=== PATIENT | female | born 1960 | race Caucasian/White ===

== ENCOUNTER 2017-03-22 11:34 | Observation (INO) ==
--- NOTE | 2017-03-22 12:16 | Emergency Department Note ---
Disposition Clinical Impression: ECG abnormal Chest pain Qualifiers: Chest pain type: unspecified Qualified Code(s): R07.9 - Chest pain, unspecified Disposition: Admitted As Inpatient Condition: Good Neuro HPI - General Chief Complaint: ED Neuro Symptoms/Deficit Stated Complaint: facial/L arm numbness Time Seen by Provider: 03/22/17 11:53 Source: patient Limitations: no limitations Nursing Notes Reviewed: Yes Vital Signs Reviewed: Yes - History of Present Illness HPI Narrative: She presents with numbness of the left face and left tongue and left arm which started yesterday and then extended left ankle today. No slurred speech, drooping of the face or confusion. This is confirmed by her who is also here with her. No weakness of the extremities. She also has left-sided chest pain which is heaviness feeling and started about 9:00 this morning is constant and nonexertional. No pleuritic aspect. No radiation and specifically no radiation to the back, neck, arm or jaw. No fevers but does have some blurred vision left eye. No rhinorrhea, cough, sneezing, urine or stool, pain or swelling of extremities, skin rash or bruising of the skin. Social history: No alcohol or drugs. Family history: Positive for both heart attack and stroke in parents - Related Data Home Medications: Home Medications Medication Instructions Recorded Confirmed Amlodipine [Norvasc] 2.5 - 5 mg PO DAILY 03/22/17 03/22/17 Aspirin Enteric Coated [Aspirin EC] 81 mg PO DAILY 03/22/17 03/22/17 Ergocalciferol (VITAMIN D2) 400 unit PO DAILY 03/22/17 03/22/17 [Vitamin D] [place]-3/Dha/Epa/Fish Oil [Fish Oil 1,000 mg PO DAILY 03/22/17 03/22/17 1,000 mg Softgel] Potassium 99 mg PO DAILY 03/22/17 03/22/17 Allergies/Adverse Reactions: Allergies Allergy/AdvReac Type Severity Reaction Status Date / Time No Known Allergies Allergy Verified 03/22/17 11:53 Review of Systems: No fevers but does have some blurred vision. No rhinorrhea, cough, sneezing, urine or stool, pain or swelling of extremities, skin rash or bruising of the skin. Past Medical History - Past Medical History Medical history: Reports: hypertension - Social History Smoking Status: Never smoker Smokeless Tobacco Status: No Alcohol use: Reports: occasionally Drug use: Reports: none Physical Exam CONSTITUTIONAL: Well-appearing; well-nourished; A&O X3, in no apparent distress HEAD: Normocephalic; atraumatic. EYES: PERRL, EOMI, no scleral icterus NOSE: The nose is normal in appearance without rhinorrhea NECK: Supple without rigidity, no MIGUEL A RESP: Normal chest excursion with respiration; breath sounds clear and equal bilaterally; no wheezes, rhonchi, or rales CARD: Regular rhythm, without murmurs, rub or gallop ABD: Non-distended; non-tender, soft, without rigidity, rebound or guarding Chest: No pain with palpation anterior chest wall SKIN: Normal for age and race; warm and dry; no apparent lesions, no rash NEUROLOGICAL: Patient is alert and oriented times three. Cranial nerves III- XII are intact. Sensory and motor functions are intact. Strength is 5/5 for flexion and extension in all 4 extremities. Patellar DTRS are equal and intact. Finger to nose testing is equal and normal bilaterally. EXTREMITIES: Pulses are 2 plus and equal times 4 extremities, no peripheral edema or calf muscle pain. - General Limitations: no limitations General appearance: alert Course Vital Signs Temperature 98.6 F 03/22/17 11:48 Pulse Rate 94 03/22/17 11:48 Respiratory Rate 18 03/22/17 11:48 Blood Pressure 169/81 03/22/17 11:48 O2 Sat by Pulse Oximetry 99 03/22/17 11:48 Temperature 97.9 F 03/22/17 19:03 Pulse Rate 69 03/22/17 19:03 Respiratory Rate 15 03/22/17 19:03 Blood Pressure 132/75 03/22/17 19:03 O2 Sat by Pulse Oximetry 95 03/22/17 19:03 Oxygen Delivery Oxygen Delivery Room Air Neuro Symptoms/Deficit - MDM Narrative Medical decision making narrative: The patient's symptoms are concerning is they are unilateral and a head CT will be done as well as additional labs to look for signs of stroke or intracranial mass or hemorrhage. As far as the chest pain this is nonexertional and nonpleuritic however I did get a EKG which does show normal sinus rhythm with a rate of 80 without acute ischemic change but there are some nonspecific ST changes. The patient does have some concern risk factors based on her age and history of hypertension and does need further evaluation for the chest pain as this is concerning.[id number] changes on her EKG will be admitted for further evaluation of that as well as the unilateral numbness. I did speak with the hospitalist who accepts the patient for admission - Medical Records Medical records reviewed: Yes I reviewed the patient's medical records. - Lab Data Lab results reviewed: Yes I reviewed the patient's lab results. Result diagrams: 03/22/17 12:51 03/22/17 12:51 Lab Results 03/22/17 03/22/17 03/22/17 Range/Units 12:51 12:51 12:51 WBC 5.8 (4.3-11.1) K/mcL RBC 4.54 (3.82-4.97) M/mcL Hgb 12.9 (11.5-15.4) g/dL Hct 39.0 (35.3-44.9) % MCV 85.9 (83.0-100.0) fL MCH 28.4 (28.0-33.3) pg MCHC 33.1 (31.6-35.5) g/dL RDW 13.3 (11.5-14.5) % Plt Count 364 (140-400) K/mcL MPV 9.3 L (9.4-12.4) fL Immature Gran % 0.3 (0-4) % Seg Neutrophils % 58.6 % Lymphocytes % 33.2 % Monocytes % 5.3 % Eosinophils % 1.7 % Basophils % 0.9 % Neutrophils # 3.4 (1.6-8.9) K/mcL Lymphocytes # 1.9 (0.6-4.6) K/mcL Monocytes # 0.3 (0.0-1.3) K/mcL Eosinophils # 0.1 (0.0-0.6) K/mcL Basophils # 0.1 (0.0-0.2) K/mcL Sodium 143 (136-145) mEq/L Potassium 2.9 L (3.5-4.5) mEq/L Chloride 106 (98-109) mEq/L Carbon Dioxide 29 (19-29) mEq/L BUN 13 (7-20) mg/dL Creatinine 0.80 (0.57-1.11) mg/dL Est GFR ( Amer) > 60 (> 60) Est GFR (Non-Af Amer) > 60 (> 60) BUN/Creatinine Ratio 16 (6-26) Glucose 96 (70-99) mg/dL Calculated Osmolality 296 (280-300) Calcium 9.5 (8.6-10.8) mg/dL Magnesium 2.5 (1.6-2.6) mg/dL Troponin I 0.00 (0-0.03) ng/mL - Radiology Data Radiology results reviewed: Yes I reviewed the patient's radiology results. Head CT 03/22/17 12:05 IMPRESSION: No acute intracranial abnormality. D/ / Ismael Rogers MD / Ismael Rogers MD Interpreting Provider: Ismael Rogers MD Chest X-Ray 03/22/17 12:06 IMPRESSION: Acute findings in the chest. D/ / Bronson Gonzalez MD / Bronson Gonzalez MD Interpreting Provider: Bronson Gonzalez MD Checklist - LKW: 3-4.5 hrs Add. Contraindications Patient/family understanding: The patient/family members have been counseled and understood the risk, benefit , and alternatives of treatment.
[2017-03-22 13:07] LABS: Basophils # 0.1 K/mcL (0.0-0.2); Basophils % 0.9 %; Eosinophils # 0.1 K/mcL (0.0-0.6); Eosinophils % 1.7 %; Hemoglobin 12.9 g/dL (11.5-15.4); Immature Granulocytes % 0.3 % (0-4); Lymphocytes # 1.9 K/mcL (0.6-4.6); Lymphocytes % 33.2 %; Mean Corpuscular HGB Conc 33.1 g/dL (31.6-35.5); Mean Corpuscular Hemoglobin 28.4 pg (28.0-33.3); Mean Corpuscular Volume 85.9 fL (83.0-100.0); Mean Platelet Volume 9.3 fL (9.4-12.4); Monocytes # 0.3 K/mcL (0.0-1.3); Monocytes % 5.3 %; Neutrophils # 3.4 K/mcL (1.6-8.9); Platelet Count 364 K/mcL (140-400); Red Blood Count 4.54 M/mcL (3.82-4.97); Red Cell Distribution Width 13.3 % (11.5-14.5); Segmented Neutrophils % 58.6 %
[2017-03-22 13:26] LABS: BUN/Creatinine Ratio 16 (6-26); Blood Urea Nitrogen 13 mg/dL (7-20); Calcium 9.5 mg/dL (8.6-10.8); Carbon Dioxide 29 mEq/L (19-29); Chloride 106 mEq/L (98-109); Glucose 96 mg/dL (70-99); Osmolality,Calculated 296 (280-300); Potassium 2.9 mEq/L (3.5-4.5); Sodium 143 mEq/L (136-145); eGFR For African Americans > 60 (> 60); eGFR For Non-African Americans > 60 (> 60)
[2017-03-22] MEDS ORDERED: Potassium Effervescent 25 MEQ TABLET.EFF PO ONE (13:41)
[2017-03-22] MEDS ORDERED: Naloxone 0.4 MG/ML INJ IVP PRN (15:12)
[2017-03-22] MEDS ORDERED: Acetaminophen 325 MG TABLET PO PRN (15:12)
[2017-03-22] MEDS ORDERED: Aspirin 325 MG TABLET PO ONE (15:17)
--- NOTE | 2017-03-22 15:36 | Internal Med History&Physical ---
Date of Encounter: 03/22/17 Time of Encounter: 15:24 Assessment and Plan (1) Left sided numbness Current visit: Yes Status: Acute Patient reporting numbness and tingling in left tongue, left face, since yesterday and left arm since this morning. No reports of weakness, slurred speach CT head showed no acute intracranial abnormalities. 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 Schroeder, who will see patient tomorrow Consult to PT/OT (2) Chest discomfort Current visit: Yes Status: Acute Patient with sudden diaphoresis accompanied by chest discomfort and left arm numbness and tingling this morning. Chest pain is described as constant dull discomfort. Initial troponin was negative at 0.00. 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 (3) Hypokalemia Current visit: Yes Status: Acute Potassium of 2.9. Patient reports she has not taken her home potassium supplement in a few days. 50mEq of potassium elixer PO given in ED. check Mg level recheck chemistry in the morning. (4) Hypertension Current visit: Yes Status: Acute Blood pressure running 140s-160s since arrival. Hold home dose of amlodipine for now. Qualifiers: Hypertension type: essential hypertension Qualified Code(s): I10 - Essential (primary) hypertension (5) DVT prophylaxis Current visit: Yes Status: Acute anti-embolic stockings lovenox 40mg SQ daily. Internal Medicine - H&P: HPI Chief complaint: left sided facial numbness Admitted From: Emergency Dept Plans for Post Hospital Care: Home History of present illness: Ms. Castillo is a 57 year old female with hypertension, hyperlipidemia, history of melanoma s/p excision and history of esophageal dysphagia who presented to the Emergency department today with complaints of left sided facial numbness and tingling, left arm numbness and tingling and chest discomfort. She reports she first noted numbness and tingling on the left side of her tongue and lips yesterday afternoon at 2pm, this persisted overnight and this morning she had an episode of diaphoresis/hot flash accompanied by left arm numbness and tingling and left sided chest discomfort. She also had blurry vision in the left eye this morning. The diaphoresis and blurry vision resolved , however her left arm and left face continue to feel numb and tingly and the left side of her chest continues to have a constant dull discomfort, that does not radiate. She denies any weakness, lightheadedness or dizziness. She denies any headache, palpitations or shortness of breath. She denies any difficulty with speech or swallowing, and family also reports no slurred speech or confusion. Evaluation in the ED included CT of the head which showed no acute intracranial abnormality, troponin was negative at 0.00, EKG showed normal sinus rhythm with no acute ischemic changes, but non-specific ST-T changes. She was hypokalemic with potassium of 2.9. She was given 50mEq of potassium elixer PO by the ED. On exam, she was alert and oriented, in no acute distress. Cranial nerve were intact, she had equal strength bilaterally. Heart had regular rate and rhythm and lungs were clear bilaterally. Past Med Surg Social Fam HX - Past Medical History Medical history: cancer (melanoma s/p excision), hyperlipidemia, hypertension, other (esophageal dysphagia) - Past Surgical History Surgical History: cancer surgery (melanoma excision), cholecystectomy - Social History Smoking Status: Never smoker Smokeless Tobacco Status: No Alcohol use: occasionally Drug use: none - Family History Father Living Status: Cause of : CVA Mother Living Status: Hx Family Cardiac Disorders: Yes Hx Family Endocrine Disorder: Yes (diabetes) Internal Medicine - H&P: Meds Amlodipine [Norvasc] 2.5 - 5 mg PO DAILY 03/22/17 [History] Aspirin Enteric Coated [Aspirin EC] 81 mg PO DAILY 03/22/17 [History] Ergocalciferol (VITAMIN D2) [Vitamin D] 400 unit PO DAILY 03/22/17 [History] [place]-3/Dha/Epa/Fish Oil [Fish Oil 1,000 mg Softgel] 1,000 mg PO DAILY 03/22/17 [History] Potassium 99 mg PO DAILY 03/22/17 [History] Allergies No Known Allergies Allergy (Verified 03/22/17 11:53) All Systems PM: A 10-system review of systems was performed and is negative for pertinent findings except as documented above in the HPI. - Constitutional Constitutional: no chills, no fever(s), no night sweats - EENT Eyes: blurry vision (left eye earlier today), no change in vision, no discharge , no pain, no photophobia Ears: no ear discharge, no ear pain, no tinnitus Nose, mouth and throat: no dysphagia, no nasal discharge, no neck pain, no sore throat - Cardiovascular Cardiovascular ROS IM: chest pain, diaphoresis, no dyspnea, no lightheadedness, no palpitations, no syncope - Respiratory Respiratory: no cough, no dyspnea, no wheezing, no excessive phlegm production - Gastrointestinal Gastrointestinal: no abdominal pain, no diarrhea, no hematemesis, no hematochezia, no melena, no nausea, no vomiting - Genitourinary Genitourinary: no change in urinary stream, no dysuria, no flank pain, no hematuria - Musculoskeletal Musculoskeletal ROS IM: numbness (left tongue, left face, left arm), tingling ( left tongue, left face, left arm) - Integumentary Integumentary IM: no rash, no unusual bruising - Neurological Neurological ROS: numbness (left tongue, left face, left arm), tingling (left tongue, left face, left arm), no abnormal gait, no abnormal speech, no confusion , no convulsions, no focal weakness, no tremor(s), no weakness - Hematologic/Lymphatic Hematologic/Lymphatic: no easy bruising - Constitutional Vitals: Temp Pulse Resp BP Pulse Ox 98.6 F 73 16 141/76 100 03/22/17 11:48 03/22/17 14:32 03/22/17 14:32 03/22/17 14:32 03/22/17 14:32 General appearance: Present: A&O X 3, pleasant, no acute distress - Head Head exam: Present: atraumatic, normocephalic - Eye Eye exam: Present: PERRL, conjuntiva pink, sclera anicteric Pupils: Present: PERRL - Neck Neck exam general surgery: Present: supple, trachea midline. Absent: lymphadenopathy - Respiratory Respiratory exam: Present: CTAB. Absent: accessory muscle use, rales, rhonchi, wheezes - Cardiovascular Cardiovascular exam: Present: RRR, +S1, +S2. Absent: diastolic murmur, gallop, rubs, systolic murmur - GI/Abdominal GI/Abdominal exam: Present: normal bowel sounds, soft, no peritoneal signs. Absent: distended, tenderness - Extremities Exam Extremities exam: Present: warm, radial pulses palpable and symetrical. Absent : calf tenderness, cyanotic, pedal edema - Neurological Exam Neurological exam: Present: CN II-XII intact, oriented X3, strengths equal and symetr throughout. Absent: pronater drift, facial droop, speech deficit - Expanded Neurological Exam Cranial Nerves: EOM's intact PM: Normal, tongue deviation PM: Normal Cerebellar function: finger to nose: Normal Neuro motor strength exam: LUE: 5, RUE: 5, LLE: 5, RLE: 5 - Skin Skin exam: Present: dry, intact Internal Med - H&P Results - Labs CBC & Chem 7: 03/22/17 12:51 03/22/17 12:51 Labs: Short CBC All Lab Results (24 Hours) 03/22/17 03/22/17 03/22/17 Range/Units 12:51 12:51 12:51 WBC 5.8 (4.3-11.1) K/mcL RBC 4.54 (3.82-4.97) M/mcL Hgb 12.9 (11.5-15.4) g/dL Hct 39.0 (35.3-44.9) % MCV 85.9 (83.0-100.0) fL MCH 28.4 (28.0-33.3) pg MCHC 33.1 (31.6-35.5) g/dL RDW 13.3 (11.5-14.5) % Plt Count 364 (140-400) K/mcL MPV 9.3 L (9.4-12.4) fL Immature Gran % 0.3 (0-4) % Seg Neutrophils % 58.6 % Lymphocytes % 33.2 % Monocytes % 5.3 % Eosinophils % 1.7 % Basophils % 0.9 % Neutrophils # 3.4 (1.6-8.9) K/mcL Lymphocytes # 1.9 (0.6-4.6) K/mcL Monocytes # 0.3 (0.0-1.3) K/mcL Eosinophils # 0.1 (0.0-0.6) K/mcL Basophils # 0.1 (0.0-0.2) K/mcL Sodium 143 (136-145) mEq/L Potassium 2.9 L (3.5-4.5) mEq/L Chloride 106 (98-109) mEq/L Carbon Dioxide 29 (19-29) mEq/L BUN 13 (7-20) mg/dL Creatinine 0.80 (0.57-1.11) mg/dL Est GFR ( Amer) > 60 (> 60) Est GFR (Non-Af Amer) > 60 (> 60) BUN/Creatinine Ratio 16 (6-26) Glucose 96 (70-99) mg/dL Calculated Osmolality 296 (280-300) Calcium 9.5 (8.6-10.8) mg/dL Magnesium 2.5 (1.6-2.6) mg/dL Troponin I 0.00 (0-0.03) ng/mL - Impressions ITS Impressions Head CT 03/22/17 12:05 IMPRESSION: No acute intracranial abnormality. D/ / Ismael Rogers MD / Ismael Rogers MD Interpreting Provider: Ismael Rogers MD Chest X-Ray 03/22/17 12:06 IMPRESSION: Acute findings in the chest. D/ / Bronson Gonzalez MD / Bronson Gonzalez MD Interpreting Provider: Bronson Gonzalez MD - Diagnostic Studies CT scan - head Additional comments: Head CT 03/22/17 12:05
[2017-03-22 15:37] LABS: Magnesium 2.5 mg/dL (1.6-2.6)
--- NOTE | 2017-03-22 16:55 | Event Note ---
Date of Encounter: 03/22/17 Time of Encounter: 16:54 patient seen and examined with nurse practitioner. Agree with assessment and plan
--- NOTE | 2017-03-22 17:23 | Electrocardiograph Report ---
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
--- NOTE | 2017-03-22 18:21 | Neurology - Consult Note ---
Date of Encounter: 03/22/17 Time of Encounter: 18:19 Assessment and Plan (1) Left sided numbness Current Visit: Yes Status: Acute This patient presents with crescendo-type numbness of the left face, followed by paresthesias of the left arm which began today. This type of presentation is atypical for stroke. Stroke in general does not present with a crescendo pattern of his nature, and the purely sensory nature of the symptoms and the absence of any weakness or hard deficits are also reassuring. However given the fact she is a strong family history of a younger individuals with cerebrovascular disease I believe that a full workup is indicated. I would recommend aspirin 81 mg daily, would also recommend carotid duplex Doppler study and echocardiogram. She was slightly hypertensive at admission there for aggressive management of her hypertension is recommended as well. If this workup is negative you may discharge her at your discretion. I will reevaluate her your request. The documentation in the history of HPI and plan were at least partially created by [employer] voice recognition technology by Dr. Schroeder. Errors in grammar, wording or other phrases may exist. If errors are found after the documentation signed, they will be addressed individually in the addendum section of this document when appropriate. History of Present Illness HPI: Ms. Castillo is a 57 year old female who is being seen for neurologic consultation secondary to chief complaint of numbness and paresthesias involving the left face and left arm. Symptoms onset yesterday. She complained of intermittent intermittent left facial paresthesias yesterday. Symptoms apparently occurred while on and off. And then today she experienced some dull chest pain with intermittent paresthesias of the left upper extremity. Paresthesias lasted for a few hours. She denies weakness or speech difficulty denied any confusion associated denied weakness of the left leg. Denied any headache or visual changes associated. She denies any previous episodes of this nature. Denies any stressful events. She admits that individuals in the family have had heart attacks and strokes in the 40s and 60s. MRI scan of the brain is completed and reveals some scattered nonspecific white matter hyperintensities however no evidence of acute infarct. Past Med Surg Social Fam HX - Past Medical History Medical history: cancer (melanoma s/p excision), hyperlipidemia, hypertension, other (esophageal dysphagia) - Past Surgical History Surgical History: cancer surgery (melanoma excision), cholecystectomy - Social History Smoking Status: Never smoker Smokeless Tobacco Status: No Alcohol use: occasionally Drug use: none - Family History Father Living Status: Cause of : CVA Mother Living Status: Hx Family Cardiac Disorders: Yes Hx Family Endocrine Disorder: Yes (diabetes) Medications and Allergies Amlodipine [Norvasc] 2.5 - 5 mg PO DAILY 03/22/17 [History] Aspirin Enteric Coated [Aspirin EC] 81 mg PO DAILY 03/22/17 [History] Ergocalciferol (VITAMIN D2) [Vitamin D] 400 unit PO DAILY 03/22/17 [History] [place]-3/Dha/Epa/Fish Oil [Fish Oil 1,000 mg Softgel] 1,000 mg PO DAILY 03/22/17 [History] Potassium 99 mg PO DAILY 03/22/17 [History] Allergies No Known Allergies Allergy (Verified 03/22/17 11:53) All Systems: A 10-system review of systems was performed and is negative for pertinent findings except as documented above in the HPI. Review of Systems: 10 point review of systems is consistent with a history of present illness otherwise negative. Physical Examination - Vital Signs Vital Signs: Initial Vital Signs Temp Pulse Resp BP Pulse Ox 98.6 F 94 18 169/81 99 03/22/17 11:48 03/22/17 11:48 03/22/17 11:48 03/22/17 11:48 03/22/17 11:48 - Neurologic Detailed motor examination: full strength in all major muscle groups Motor examination - right side: 5/5: deltoids, biceps, triceps, wrist flexion, wrist extension, interior assemblies developer prover, hip flexors, tibialis Anterior, quadriceps, toe extension (EHL), plantarflexion Motor examination - left side: 5/5: deltoids, biceps, triceps, wrist flexion, wrist extension, hip flexors, interior assemblies developer prover, quadriceps, tibialis Anterior, toe extension (EHL), plantarflexion Reflexes: Biceps: 2+, Triceps: 2+, Brachioradialis: 2+, Patella: 2+, Achilles: 2 + Mental Status Examination: awake, alert, oriented to person, oriented to place, oriented to time, follows commands appropriately, answers questions appropriately, no agnosia, no aphasia, no aproxia Cranial nerve examination: PERRL, EOMI, visual bunn intact, corneal reflexes brisk symmetrically, sensory to face intact, mastication intact, no facial asymmetry is present, no dysarthria, hearing is intact symmetrically, soft palate elevates bilaterally upon phonation, gag reflex intact, flexes SCM and trapezius muscles symmetrically with full power, tongue protrudes midline, no atrophy or facial fasiculations present Cerebellar examination: no dysmetria, performs finger to nose and heel to stacy symmetrically without ataxia, no gait ataxia, no truncal ataxia, no difficulty with rapid alternating movements Results - Laboratory Findings CBC and BMP: 03/22/17 12:51 03/22/17 12:51 Abnormal lab findings: Abnormal lab results MPV 9.3 fL (9.4-12.4) L 03/22/17 12:51 Potassium 2.9 mEq/L (3.5-4.5) L 03/22/17 12:51 Consult Discharge Plan - Plan Instructions: Chronic Hypertension (GEN), Low Sodium Diet (GEN)
[2017-03-23 01:26] LABS: Basophils # 0.1 K/mcL (0.0-0.2); Basophils % 0.8 %; Eosinophils # 0.2 K/mcL (0.0-0.6); Eosinophils % 3.1 %; Hematocrit 34.8 % (35.3-44.9); Hemoglobin 11.6 g/dL (11.5-15.4); Immature Granulocytes % 0.5 % (0-4); Immature Platelets 3.1 % (1.1-6.1); Lymphocytes # 2.6 K/mcL (0.6-4.6); Lymphocytes % 42.8 %; Mean Corpuscular HGB Conc 33.3 g/dL (31.6-35.5); Mean Corpuscular Hemoglobin 28.7 pg (28.0-33.3); Mean Corpuscular Volume 86.1 fL (83.0-100.0); Mean Platelet Volume 9.6 fL (9.4-12.4); Monocytes # 0.5 K/mcL (0.0-1.3); Monocytes % 7.3 %; Neutrophils # 2.8 K/mcL (1.6-8.9); Platelet Count 330 K/mcL (140-400); Red Blood Count 4.04 M/mcL (3.82-4.97); Red Cell Distribution Width 13.5 % (11.5-14.5); Segmented Neutrophils % 45.5 %
[2017-03-23 01:43] LABS: BUN/Creatinine Ratio 19 (6-26); Blood Urea Nitrogen 16 mg/dL (7-20); Calcium 9.3 mg/dL (8.6-10.8); Carbon Dioxide 28 mEq/L (19-29); Chloride 105 mEq/L (98-109); Chol/HDL Ratio 5.1 (0-4.9); Cholesterol 184 mg/dL (< 200); Glucose 109 mg/dL (70-99); HDL Cholesterol 36 mg/dL (40-59); LDL Cholesterol,Calculated 123 mg/dL (0-99); Osmolality,Calculated 294 (280-300); Potassium 3.3 mEq/L (3.5-4.5); Sodium 141 mEq/L (136-145); Triglycerides 126 mg/dL (< 150); eGFR For African Americans > 60 (> 60); eGFR For Non-African Americans > 60 (> 60)
[2017-03-23] MEDS: *HR* Enoxaparin 40 MG/0.4 ML SYRINGE SQ SCH (06:02)
[2017-03-23] MEDS ORDERED: amLODIPine 5 MG TABLET PO SCH (09:00)
[2017-03-23] MEDS: Aspirin Enteric Coated 81 MG Tablet PO SCH (09:06)
--- NOTE | 2017-03-23 10:08 | ECHO - Doppler Report ---
Echocardiogram Name: Evette Castillo Date of Study: 03/23/2017 Date: 1960 Ht: 66.0 in Medical Record#: [id number] Age: 57 Wt: 164.0 lb Gender: Female BSA: 1.84 Order #: [id number] Location: [facility] Room #: [id number] Reading Physician: Andre Dickey MD[facility] Supervisor: Nunu Roman RVT, [facility] Ordering Physician: Jamilah Greco LUMBER ESTIMATOR Primary Physician: None Indications: chest discomfort and left sided numbness Impressions: LVEF is grossly normal; regional wall motion abnormalities cannot be ruled out on the basis of this study with suboptimal endocardial visualization No significant valvular dysfunction. Left Ventricular Wall Motion: Rest Echo Findings All wall segments showed normal motion. Findings: Right Ventricle * Normal right ventricular structure and function. Left Atrium * Normal left atrial size. Right Atrium * Normal right atrial size. Mitral Valve * Normal mitral valve structure and function. Interatrial Septum * No evidence of PFO by color Doppler. Aorta * Normally sized aortic root. Pericardium * The pericardium appears normal. Left Ventricle * LVEF is grossly normal; regional wall motion abnormalities cannot be ruled out on the basis of this study with suboptimal endocardial visualization \E\ * Indeterminate diastolic function. IVC * Normal IVC dimensions and inspiratory collapse. Tricuspid Valve * No tricuspid stenosis. * No tricuspid regurgitation. * Tricuspid valve not well visualized. * Unable to estimate RVSP due to lack of TR jet. Pulmonic Valve * No pulmonic stenosis. * No pulmonic regurgitation. * Pulmonic valve is not well visualized. Aortic Valve * No aortic regurgitation. * No aortic stenosis. * Aortic valve not well visualized. ECG Findings * Normal sinus rhythm. Study Quality * Technically sub-optimal due to poor echocardiographic windows. History Hypertension Hypercholesteremia Family History of CAD Measurements: BP: 129/ 63 2D Normal Values IVSd: .90 cm 0.6 - 1.0 cm LVIDd: 4.60 cm 3.7 - 5.6 cm LVPWd: .80 cm 0.6 - 1.1 cm LVIDs: 3.30 cm 1.5 - 3.6 cm AO: 3.10 cm < 4.0 cm LA: 3.70 cm 2.0 - 4.0cm %FS: 28.30 cm >25 % LVOT Diam: 1.70 cm LA volume: 48 Mitral Valve Peak E:.65 m/sec Peak A:.60 m/sec E/A Ratio:1.1 Peak E' Lat Sam:7.9 cm/s Peak E' Med Sam:7.41 cm/s E/E' Lat Ratio:8.2 E/E' Med Ratio:8.7 Updated by Andre Dickey MD, FACC on 03/23/2017 10:03:01 AM electronically signed on 03/23/2017 10:03:14 AM with status of Final Wall Motion Rivas: 1=Normal, 2=Hypokinesis, 3=Akinesis, 4=Dyskinesis, 5=Aneurysmal, 6=Hyperkinetic, X=Not Visualized (Blank)=Missing
--- NOTE | 2017-03-23 14:32 | Carotid Imaging Report ---
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 Recommendations: After imaging the patient returned to their room. Test completed on 07/26/2017 at 8:25:00 am. Findings Carotid Duplex: Right: There is nonstenotic plaque in the right proximal common carotid artery with a PSV of 89 cm/s and a EDV of 23 cm/s. There is smooth heterogeneous plaque. There is nonstenotic plaque in the right mid common carotid artery with a PSV of 75 cm/s and a EDV of 25 cm/s. There is smooth heterogeneous plaque. There is nonstenotic plaque in the right distal common carotid artery with a PSV of 71 cm/s and a EDV of 22 cm/s. There is smooth heterogeneous plaque. There is nonstenotic plaque in the right bifurcation with a PSV of 55 cm/s and a EDV of 15 cm/s. There is smooth heterogeneous plaque. There is nonstenotic plaque in the right proximal internal carotid artery with a PSV of 82 cm/s and a EDV of 37 cm/s. There is nonstenotic plaque in the right mid internal carotid artery with a PSV of 105 cm/s and a EDV of 44 cm/s. There is nonstenotic plaque in the right distal internal carotid artery with a PSV of 92 cm/s and a EDV of 38 cm/s. There is nonstenotic plaque in the right eca with a PSV of 99 cm/s and a EDV of 17 cm/s. The right vertebral artery has a PSV of 51 cm/s and a EDV of 21 cm/s. Left: There is nonstenotic plaque in the left proximal common carotid artery with a PSV of 97 cm/s and a EDV of 26 cm/s. There is smooth heterogeneous plaque. There is nonstenotic plaque in the left mid common carotid artery with a PSV of 74 cm/s and a EDV of 19 cm/s. There is smooth heterogeneous plaque. There is nonstenotic plaque in the left distal common carotid artery with a PSV of 72 cm/s and a EDV of 20 cm/s. There is smooth heterogeneous plaque. There is nonstenotic plaque in the left bifurcation with a PSV of 63 cm/s and a EDV of 14 cm/s. There is smooth heterogeneous plaque. There is nonstenotic plaque in the left proximal internal carotid artery with a PSV of 75 cm/s and a EDV of 33 cm/s. There is nonstenotic plaque in the left mid internal carotid artery with a PSV of 99 cm/s and a EDV of 44 cm/s. There is nonstenotic plaque in the left distal internal carotid artery with a PSV of 98 cm/s and a EDV of 28 cm/s. There is nonstenotic plaque in the left eca with a PSV of 96 cm/s and a EDV of 20 cm/s. The left vertebral artery has a PSV of 54 cm/s and a EDV of 17 cm/s. Prior Study: No prior study available for comparison. Carotid Results Right PSV EDV Assessment Proximal CCA 89 23 Non Stenotic Plaque Mid CCA 75 25 Non Stenotic Plaque Distal CCA 71 22 Non Stenotic Plaque Bifurcation 55 15 Non Stenotic Plaque Proximal ICA 82 37 Non Stenotic Plaque Mid ICA 105 44 Non Stenotic Plaque Distal ICA 92 38 Non Stenotic Plaque ECA 99 17 Non Stenotic Plaque Vertebral Artery 51 21 Antegrade Flow Left PSV EDV Assessment Proximal CCA 97 26 Non Stenotic Plaque Mid CCA 74 19 Non Stenotic Plaque Distal CCA 72 20 Non Stenotic Plaque Bifurcation 63 14 Non Stenotic Plaque Proximal ICA 75 33 Non Stenotic Plaque Mid ICA 99 44 Non Stenotic Plaque Distal ICA 98 28 Non Stenotic Plaque ECA 96 20 Non Stenotic Plaque Vertebral Artery 54 17 Antegrade Flow Ratio's Right ICA/CCA Ratio: 1.40 ICA/CCA Values: 105/75 Left ICA/CCA Ratio: 1.34 ICA/CCA Values: 99/74 Updated by Greg Silverio MD on 03/23/2017 2:27:02 PM electronically signed on 03/23/2017 2:27:14 PM with status of Final
[2017-03-23] MEDS ORDERED: TETRACAINE 0.5% LEFT EYE ONE (16:13)
[2017-03-23] MEDS ORDERED: OPTH LEFT EYE ONE (16:13)
--- NOTE | 2017-03-23 16:36 | Internal Med Progress Note ---
Date of Encounter: 03/23/17 Time of Encounter: 15:30 - Assessment and plan (1) Chest pain Current Visit: Yes Status: Resolved Assessment and plan: Patient currently denies chest pain or shortness of breath. Chest x-ray negative. Echocardiogram unremarkable. Stress test tomorrow morning, possible discharge afterwards pending clinical outcomes. (2) Left sided numbness Current Visit: Yes Status: Resolved (3) Corneal abrasion, left Current Visit: Yes Status: Acute Assessment and plan: Patient with left eye corneal abrasion. Positive photophobia. Patient's contact Jose F dry so she put her left contact in her mouth and then put it back in her eye which is likely what caused the irritation. Contacts have been removed and placed in saline. We will treat with numbing drops. No signs of An infection. (4) DVT prophylaxis Current Visit: Yes Status: Acute Assessment and plan: Subcutaneous Lovenox (5) Hypertension Current Visit: Yes Status: Chronic Assessment and plan: Borderline hypertensive, her home amlodipine has been continued, will trend Qualifiers: Hypertension type: essential hypertension Qualified Code(s): I10 - Essential (primary) hypertension (6) Hypokalemia Current Visit: Yes Status: Acute Assessment and plan: Improving, will continue to replete. Magnesium normal. - Subjective Interval history: Patient seen and examined. On examination, patient sitting upright in bed conversing with her . Patient denies chest pain. She denies any tingling. She currently complains of left thigh pain endorsing photophobia to that eye. - Constitutional Vitals: Temp Pulse Resp BP Pulse Ox 97.9 F 92 16 150/84 97 03/23/17 15:34 03/23/17 15:34 03/23/17 15:34 03/23/17 15:34 03/23/17 15:34 General appearance: Present: A&O X 3, pleasant, no acute distress, answers questions appropriately - Head Head exam: Present: atraumatic, normocephalic - Eye Eye exam: Present: conjunctival injection (right eye), PERRL, conjuntiva pink, sclera anicteric Pupils: Present: PERRL - Neck Neck exam general surgery: Present: supple, trachea midline. Absent: lymphadenopathy - Respiratory Respiratory exam: Present: CTAB. Absent: accessory muscle use, rales, respiratory distress, rhonchi, wheezes - Cardiovascular Cardiovascular exam: Present: RRR, +S1, +S2. Absent: diastolic murmur, gallop, rubs, systolic murmur - GI/Abdominal GI/Abdominal exam: Present: normal bowel sounds, soft, no peritoneal signs. Absent: distended, tenderness - Extremities Exam Extremities exam: Present: warm, radial pulses palpable and symetrical. Absent : calf tenderness, cyanotic, pedal edema - Neurological Exam Neurological exam: Present: alert, CN II-XII intact, normal gait, oriented X3, no focal deficits, strengths equal and symetr throughout. Absent: pronater drift, facial droop, speech deficit - Skin Skin exam: Present: dry, intact, normal color, warm Internal Medicine: Result - Labs CBC & Chem 7: 03/23/17 00:47 03/23/17 00:47 Labs: Short CBC 03/23/17 Range/Units 00:47 WBC 6.2 (4.3-11.1) K/mcL Hgb 11.6 (11.5-15.4) g/dL Hct 34.8 L (35.3-44.9) % Plt Count 330 (140-400) K/mcL Neutrophils # 2.8 (1.6-8.9) K/mcL BMP 03/23/17 00:47 Sodium 141 Potassium 3.3 L Chloride 105 Carbon Dioxide 28 BUN 16 Creatinine 0.84 Glucose 109 H Calcium 9.3 Cardiac Enzymes 03/22/17 03/23/17 Range/Units 20:15 00:47 Troponin I 0.00 0.00 (0-0.03) ng/mL - VTE Documentation of Mechanical Device: Graduated compression elastic hosiery Consult Discharge Plan - Plan Instructions: Chronic Hypertension (GEN), Low Sodium Diet (GEN), Hyperlipidemia (GEN) Referrals: NO,PCP [Non-Partnered Physician] -
[2017-03-23] MEDS ORDERED: Tetracaine 0.5% OPTH 80 DROP/4 ML BOTTLE LEFT EYE ONE (17:00)
[2017-03-23] MEDS: amLODIPine 5 MG TABLET PO SCH (17:06)
[2017-03-24] MEDS: *HR* Enoxaparin 40 MG/0.4 ML SYRINGE SQ SCH (05:43)
[2017-03-24 08:25] LABS: BUN/Creatinine Ratio 18 (6-26); Blood Urea Nitrogen 14 mg/dL (7-20); Calcium 9.1 mg/dL (8.6-10.8); Carbon Dioxide 23 mEq/L (19-29); Chloride 106 mEq/L (98-109); Glucose 98 mg/dL (70-99); Osmolality,Calculated 292 (280-300); Potassium 3.3 mEq/L (3.5-4.5); Sodium 141 mEq/L (136-145); eGFR For African Americans > 60 (> 60); eGFR For Non-African Americans > 60 (> 60)
[2017-03-24] MEDS: amLODIPine 5 MG TABLET PO SCH (10:20)
[2017-03-24] MEDS: Aspirin Enteric Coated 81 MG Tablet PO SCH (10:20)
--- NOTE | 2017-03-24 10:52 | Nuclear Medicine Stress Report ---
Exercise Nuclear Stress Name: Evette Castillo Date of Study: 03/24/2017 Date: 1960 Ht: 66.0 in Medical Record#: [id number] Age: 57 Wt: 164.0 lb Gender: Female Order #: [id number] Location: [facility] Room: [facility] Supervising Provider: Jorge Puckett CNP Reading Physician: Andre Dickey MD, [facility] Ordering Physician: Ginger Alexander CNP Primary Care Physician: Greg Skelton MD Stress Technologist: Klaudia Chang RRT,[facility] Trekking Guide: Frederick Butler Indications: Chest Pain Impression: Perfusion imaging was negative for ischemia or infarct. Exercise ECG was negative for ischemia. Exercise capacity was fair. Hypertensive hemodynamic response. Patient had no chest pain with stress. No arrhythmias noted with stress. Gated EF = >70%. The LV is not dilated. There is no evidence of TID. History: Hypertension Stress Test Summary: Stress Test Type: Treadmill Protocol: Andre Baseline Information: Initial Heart Rate: 80 Blood Pressure: 128/82 Stress Information: Stress Time: 6 min 00 sec Test Terminated Due to (primary): Fatigue Maximum Blood Pressure: 182/58 Maximum Heart Rate: 142 Percent Maximum Heart Rate Achieved: 87 Double Product: [id number] METS Reached: 7 Symptoms: Fatigue Nuclear Summary: SPECT myocardial perfusion imaging using Tc99m Sestamibi given intravenously was performed at rest and following cardiac stress testing. The resting images were obtained following initial dose of 9.7 mCi. Following stress an additional dose of 35.1 mCi was given at peak exercise or 30 seconds post regadenoson infusion. Medication Given: Time Medication Dose Units Route Findings: Stress Note * Resting ECG demonstrated normal sinus rhythm. * No baseline arrhythmias were noted. * Exercise ECG is negative for ischemia. * No arrhythmias were noted during stress. * No chest pain or arrhythmias during stress. * The exercise capacity was fair. Hemodynamic responses * Hypertensive hemodynamic responses to exercise. Study Quality * Study quality is good. Gated EF > 70% * Gated EF > 70%. Left Ventricle * The left ventricle is not dilated. NORMALS * Normal wall motion. * Normal segmental perfusion in stress. * Normal Segmental Perfusion in rest. TID * No evidence of transient ischemic dilatation. Updated by Andre Dickey MD, FACC on 03/24/2017 10:41:36 AM electronically signed on 03/24/2017 10:47:55 AM with status of Final
[2017-03-24 11:38] VITALS: BP 131/77
--- NOTE | 2017-03-24 13:00 | Discharge Summary ---
Date of Encounter: 03/24/17 Time of Encounter: 12:30 - Discharge Diagnosis (1) Chest pain Priority: Primary Status: Resolved Comments: Patient denied chest pain or shortness of breath throughout this admission. Chest x-ray negative. Echocardiogram unremarkable. Stress test negative Qualifiers: Chest pain type: unspecified Qualified Code(s): R07.9 - Chest pain, unspecified (2) Left sided numbness Priority: Primary Status: Resolved Comments: Resolved; brain MRI negative (3) Corneal abrasion, left Priority: Primary Status: Acute Comments: Patient with left eye corneal abrasion that improved overnight and she no longer has photophobia. Patient's contact had gotten dry so she put her left contact in her mouth and then put it back in her eye which is likely what caused the irritation. Contacts were removed and placed in saline. Treated with numbing drops. No signs of An infection. Qualifiers: Encounter type: initial encounter Qualified Code(s): S05.02XA - Injury of conjunctiva and corneal abrasion without foreign body, left eye, initial encounter (4) DVT prophylaxis Priority: Primary Status: Acute Comments: Subcutaneous Lovenox while admitted (5) Hypertension Priority: Secondary Status: Chronic Comments: Borderline hypertensive initially upon admission and her home amlodipine was continued, normotensive at time of discharge. Follow-up outpatient. Qualifiers: Hypertension type: essential hypertension Qualified Code(s): I10 - Essential (primary) hypertension (6) Hypokalemia Priority: Primary Status: Acute Comments: Mild, asymptomatic, follow-up outpatient. Magnesium normal. - Discharge Medications Home Medications: Amlodipine [Norvasc] 2.5 - 5 mg PO DAILY 03/22/17 [History] Aspirin Enteric Coated [Aspirin EC] 81 mg PO DAILY 03/22/17 [History] Ergocalciferol (VITAMIN D2) [Vitamin D] 400 unit PO DAILY 03/22/17 [History] [place]-3/Dha/Epa/Fish Oil [Fish Oil 1,000 mg Softgel] 1,000 mg PO DAILY 03/22/17 [History] Potassium 99 mg PO DAILY 03/22/17 [History] Allergies/Adverse Reactions: Allergies No Known Allergies Allergy (Verified 03/22/17 11:53) Procedures/tests Complete & Pending: Procedures Performed prior 72 hours Category Date Time Status NM adriana perf SPECT multi [NM] Routine Exams 03/24/17 08:39 Taken ECG 12 lead ECG [ECG] Routine Y 03/22/17 11:53 Completed SP exercise nuclear stress Routine Y 03/23/17 08:39 Completed Date of admission: 03/22/17 15:56 Primary care physician: Greg Skelton MD Consults: 03/22/17 15:15 Consult to Physical Therapy [CONS] Routine Comment: Evaluate, develop and implement POC 03/22/17 15:51 Consult to Neurology [CONS] Routine Consulting Provider: [facility] Reason for Consult: left sided numbness and tingling Call Completed: Yes Discharging clinician: Ginger Alexandre Anticipated date of discharge: 03/24/17 - Patient Status Disposition: Home, Self-Care Condition: Good Functional capacity at discharge: independent ambulation Overall status at discharge: patient is back to baseline - Discharge Instructions Instructions: Chronic Hypertension (GEN), Low Sodium Diet (GEN), Hyperlipidemia (GEN) Follow Up With: Greg Skelton MD [Primary Care Provider] - Additional Instructions: Follow-up with primary care provider within one to 2 weeks, check blood pressure daily and keep a log for your primary care provider - Diet and Activity Activity: increase activity as tolerated Diet: low fat, low cholesterol, low salt diet Hospital course: Ms. Castillo is a 57 year old female with past medical history of hypertension , hyperlipidemia, history of melanoma status post excision, history of esophageal dysphagia. Patient presented to emergency room chief complaint left- sided facial numbness and tingling accompanied by left arm numbness and tingling and chest discomfort. Patient stating she first noted the numbness and tingling in the left side of her tongue and her lips on the day before presentation which persisted overnight and in the morning of presentation, she had an episode of diaphoresis/hot phosphorous associated with left arm numbness and tingling and left-sided chest discomfort. She also endorsed blurred vision in the left eye on the morning of presentation. The diaphoresis and blurred vision had resolved however her left arm and left side of her face continued to feel numb and tingly in the left side of her chest continued and was constant and all without radiation. Patient denied any weakness, lightheadedness, dizziness, syncope. Workup in the emergency department equivocal except for mild hypokalemia at 2.9. Patient was admitted to the hospitalist service for further evaluation and management. Head CT negative. Chest x-ray negative. Brain MRI negative for acute processes. Patient's numbness and tingling resolved during admission. She had no focal neurological weakness is present. She did have a corneal abrasion to the left side which was the result of the placement putting her contact lens in her eye when it became dry and then putting that lends back in her eye. Photophobia and pain to that I resolved on day of discharge. Carotid duplex unremarkable. Echocardiogram grossly normal. Patient had an exercise stress test that was negative for ischemia or infarct and revealed an ejection fraction greater than 70%. Acute CVA and acute ACS both ruled out. For further risk factor stratification, lipid panel was checked and her LDL was borderline elevated in the rest of her panel was unremarkable. No statin indicated this time, recommend lifestyle changes and low-cholesterol diet. Hypokalemia improved, magnesium was normal. She was discharged home in stable condition with close outpatient follow-up recommended. ITS Impressions Head CT 03/22/17 12:05 IMPRESSION: No acute intracranial abnormality. D/ / Ismael Rogers MD / Ismael Rogers MD Interpreting Provider: Ismael Rogers MD Chest X-Ray 03/22/17 12:06 IMPRESSION: Acute findings in the chest D/ / Bronson Gonzalez MD / Bronson Gonzalez MD Interpreting Provider: Bronson Gonzalez MD Brain MRI 03/22/17 15:18 IMPRESSION: No evidence of acute ischemic insult, acute intracranial hemorrhage, or mass lesion. Minimal cerebral subcortical white matter disease, most likely chronic small vessel ischemic change. D/ / Dann Mccullough MD / Dann Mccullough MD Interpreting Provider: Dann Mccullough MD Carotid duplex impression: Bilateral carotid system has nonstenotic plaque. Echocardiogram impressions: LVEF is grossly normal, regional wall motion abnormalities cannot be ruled out on the basis of the study was suboptimal endocardial visualization. No significant valvular dysfunction. Exercise nuclear stress test impression: Perfusion imaging was negative for ischemia or infarct. Exercise ECG was negative for ischemia. Exercise capacity was fair. Hypertensive hemodynamic response. Patient had no chest pain with stress. No arrhythmias noted with stress. Gated ejection fraction is greater than 70%. LV is not dilated. There is no evidence of TID - Time Spent with Patient Total time spent providing and/or coordinating discharge services: - Constitutional Vitals: Temp Pulse Resp BP Pulse Ox 97.7 F 66 17 131/77 97 03/24/17 11:34 03/24/17 11:34 03/24/17 11:34 03/24/17 11:34 03/24/17 11:34 General appearance: Present: A&O X 3, pleasant, no acute distress, answers questions appropriately - Head Head exam: Present: atraumatic, normocephalic - Eye Eye exam: Present: PERRL, conjuntiva pink, sclera anicteric Pupils: Present: PERRL - Neck Neck exam general surgery: Present: supple, trachea midline. Absent: lymphadenopathy - Respiratory Respiratory exam: Present: CTAB. Absent: accessory muscle use, rales, respiratory distress, rhonchi, wheezes - Cardiovascular Cardiovascular exam: Present: RRR, +S1, +S2. Absent: diastolic murmur, gallop, rubs, systolic murmur - GI/Abdominal GI/Abdominal exam: Present: normal bowel sounds, soft, no peritoneal signs. Absent: distended, tenderness - Extremities Exam Extremities exam: Present: warm, radial pulses palpable and symetrical. Absent : calf tenderness, cyanotic, pedal edema - Neurological Exam Neurological exam: Present: alert, CN II-XII intact, normal gait, oriented X3, no focal deficits, strengths equal and symetr throughout. Absent: pronater drift, facial droop, speech deficit - Skin Skin exam: Present: dry, intact, normal color, warm - VTE Documentation of Mechanical Device: Graduated compression elastic hosiery
== END 2017-03-24 13:32 | disposition home or self-care (01) ==
LOC: EMEROO 11:34 → 3BNU 11:34
PROVIDERS: ADMIT Hospitalist; ATTEND Nurse Practitioner Family

== ENCOUNTER 2019-12-25 17:24 | Observation (INO) ==
[2019-12-25 18:08] LABS: Hematocrit 33.2 % (35.3-44.9); Hemoglobin 11.3 g/dL (11.5-15.4); Mean Corpuscular Volume 79.4 fL (83.0-100.0); Mean Platelet Volume 10.3 fL (9.4-12.4); Platelet Count 176 K/mcL (140-400); Red Blood Count 4.18 M/mcL (3.82-4.97); Red Cell Distribution Width 17.2 % (11.5-14.5)
[2019-12-25 18:31] LABS: Albumin 3.2 g/dL (3.5-5.7); Albumin/Globulin Ratio 1.1 (1.1-2.2); Bilirubin,Direct 0.9 mg/dL (0.0-0.2); Bilirubin,Indirect 0.3 mg/dL (0.0-1.0); Bilirubin,Total 1.2 mg/dL (0.3-1.0); Calcium 8.3 mg/dL (8.6-10.3); Globulin 2.8 g/dL (2.4-3.5); Potassium 3.8 mEq/L (3.5-5.1)
[2019-12-25 18:33] LABS: Lymphocytes # 1.1 K/mcL (0.6-4.6); Neutrophils # 9.9 K/mcL (1.6-8.9)
[2019-12-25 18:34] LABS: Anisocytosis 1+ (Not Present); Platelet Estimate Normal (Normal)
[2019-12-25 18:53] LABS: Bilirubin,Urine Small (Negative); Blood,Urine Small (Negative); Clarity,Urine Turbid (Clear); Color,Urine Dark Yellow (Yellow); Glucose,Urine (UA) Normal (Normal); Ketones,Urine Negative (Negative); Leukocyte Esterase,Urine Small (Negative); Nitrite,Urine Negative (Negative); PH,Urine 5.5 pH Units (5.0-8.0); Protein,Urine 100 mg/dL (Neg-Trace); Specific Gravity,Urine 1.026 (1.010-1.025); Urobilinogen,Urine Normal (Normal)
[2019-12-25] MEDS ORDERED: 0.9 % Sodium Chloride 1,000 ML IVC ONE (18:54)
[2019-12-25 18:58] LABS: Hyaline Casts,Urine Few per lpf (None-Few); RBC,Urine 0-3 per hpf (0-3); Squamous Epithelial Cell,Urine Many per lpf (None-Few)
[2019-12-25] MEDS ORDERED: cefTRIAXone 1,000 MG in Water for inj. (sterile) 10 ML IVP STA (19:18)
[2019-12-25 19:21] LABS: Bacteria,Urine Moderate per hpf (None-Few)
[2019-12-25] MEDS ORDERED: 0.9 % Sodium Chloride 1,000 ML IV ONE (21:00)
[2019-12-25] MEDS ORDERED: Naloxone 0.4 MG/ML INJ IVP PRN (21:40)
[2019-12-26 05:08] LABS: Adenovirus Not Detected (Not Detect); Bordetella Pertussis Not Detected (Not Detect); Chlamydophila pneumoniae Not Detected (Not Detect); Coronavirus 229E Not Detected (Not Detect); Coronavirus HKU1 Not Detected (Not Detect); Coronavirus NL63 Not Detected (Not Detect); Coronavirus OC43 Not Detected (Not Detect); Human Metapneumovirus Not Detected (Not Detect); Human Rhinovirus/Enterovirus Not Detected (Not Detect); Influenza A Subtype 2009 H1 Not Detected (Not Detect); Influenza B Not Detected (Not Detect); Mycoplasma pneumoniae Not Detected (Not Detect); Parainfluenza Virus 1 Not Detected (Not Detect); Parainfluenza Virus 2 Not Detected (Not Detect); Parainfluenza Virus 3 Not Detected (Not Detect); Parainfluenza Virus 4 Not Detected (Not Detect); Respiratory Syncytial Virus Not Detected (Not Detect)
[2019-12-26] MEDS ORDERED: 0.9 % Sodium Chloride 1,000 ML IVC SCH (05:30)
[2019-12-26 07:39] VITALS: BP 108/56
[2019-12-26 07:45] LABS: Basophils % 0.2 %; Hematocrit 28.6 % (35.3-44.9); Immature Granulocytes % 0.6 % (0-4); Lymphocytes # 0.8 K/mcL (0.6-4.6); Lymphocytes % 9.7 %; Mean Corpuscular HGB Conc 33.6 g/dL (31.6-35.5); Mean Corpuscular Volume 80.3 fL (83.0-100.0); Mean Platelet Volume 10.3 fL (9.4-12.4); Monocytes # 0.3 K/mcL (0.0-1.3); Neutrophils # 7.4 K/mcL (1.6-8.9); Platelet Count 158 K/mcL (140-400); Red Blood Count 3.56 M/mcL (3.82-4.97); Red Cell Distribution Width 17.5 % (11.5-14.5); Segmented Neutrophils % 85.5 %; White Blood Count 8.6 K/mcL (4.3-11.1)
[2019-12-26 07:47] LABS: Hemoglobin 9.6 g/dL (11.5-15.4)
[2019-12-26 07:58] LABS: INR 1.1; Prothrombin Time 12.5 Seconds (9.4-12.1)
[2019-12-26 08:03] LABS: Anisocytosis 1+ (Not Present); Platelet Estimate Normal (Normal)
[2019-12-26 08:07] LABS: % Iron Saturation 12 % (15-50); Alanine Aminotransferase 48 Units/L (7-52); Albumin 2.8 g/dL (3.5-5.7); Albumin/Globulin Ratio 1.1 (1.1-2.2); Alkaline Phosphatase 271 Units/L (34-104); Aspartate Amino Transferase 110 Units/L (13-39); BUN/Creatinine Ratio 27 (6-26); Blood Urea Nitrogen 37 mg/dL (6-20); Calcium 7.9 mg/dL (8.6-10.3); Carbon Dioxide 20 mEq/L (23-29); Chloride 108 mEq/L (98-107); Gamma Glutamyl Transpeptidase 158 Units/L (7-64); Globulin 2.6 g/dL (2.4-3.5); Glucose 100 mg/dL (70-105); Iron 26 mcg/dL (50-170); Osmolality,Calculated 301 (280-300); Potassium 3.5 mEq/L (3.5-5.1); Sodium 141 mEq/L (136-145); Total Protein 5.4 g/dL (6.4-8.9); Transferrin 149 mg/dL (203-362); eGFR For African Americans 48 (> 60); eGFR For Non-African Americans 40 (> 60)
[2019-12-26 08:21] LABS: Ferritin > 1500 ng/mL (10-120)
[2019-12-26] MEDS ORDERED: Trametinib Dimethyl Sulfoxide [Mekinist] 2 MG PO SCH (09:00)
[2019-12-26] MEDS ORDERED: DABRAFENIB MESYLATE 75 MG PO SCH (09:00)
[2019-12-26] MEDS ORDERED: Ringers Solution, Lactated 1,000 ML IVC SCH (09:15)
[2019-12-26] MEDS ORDERED: *HR* LORazepam 1 MG TABLET PO PRN (09:46)
[2019-12-26] MEDS ORDERED: dexAMETHasone 4 MG TABLET PO SCH (09:47)
[2019-12-26 13:40] LABS: Estimated Average Glucose 137 mg/dl
[2019-12-26 14:37] LABS: Sodium, Urine 28.3 mEq/L
[2019-12-26 14:56] LABS: Adenovirus F 40/41 PCR Not detected (Not detect); Astrovirus PCR Not detected (Not detect); C.difficile Toxin A/B Gene PCR Not detected (Not detect); Campylobacter by PCR Not detected (Not detect); Cryptosporidium by PCR Not detected (Not detect); Cyclospora cayetanensis PCR Not detected (Not detect); E. coli O157 by PCR Not detected (Not detect); Entamoeba histolytica PCR Not detected (Not detect); Enteroaggregative E.coli(EAEC) Not detected (Not detect); Enteropathogenic E.coli(EPEC) Not detected (Not detect); Enterotoxigenic E.coli (ETEC) Not detected (Not detect); Giardia lamblia PCR Not detected (Not detect); Norovirus GI/GII PCR Not detected (Not detect); Plesiomonas shigelloides PCR Not detected (Not detect); Rotavirus A PCR Not detected (Not detect); Salmonella PCR Not detected (Not detect); Sapovirus PCR Not detected (Not detect); Shig/EnteroinvasiveE coli EIEC Not detected (Not detect); Shigalike tox-prod E coli STEC Not detected (Not detect); Vibrio PCR Not detected (Not detect); Vibrio cholerae PCR Not detected (Not detect); Yersinia enterocolitica PCR Not detected (Not detect)
[2019-12-26] MEDS ORDERED: cefTRIAXone 1,000 MG in Water for inj. (sterile) 10 ML IVP SCH (19:00)
== END 2019-12-26 13:53 | disposition left against medical advice (07) ==
LOC: 3BNU 17:24 → EMEROOARM 17:24 → SUATTDRO 20:45 → 3BNU 21:47
PROVIDERS: ADMIT Internal Medicine; ATTEND Internal Medicine